=== PATIENT | male | born 1950 | race Native Hawaiian/Other Pacific Islander ===

== ENCOUNTER 2017-09-20 22:48 | Emergency (ER) | payer OTHER ==
[~2017-09-20] VITALS: Ht 170.2 cm; Wt 77.1 kg
[2017-09-20 23:16] LABS: PLATELET COUNT 214 K/uL (142-355)
[2017-09-20 23:28] LABS: POTASSIUM 3.7 mmol/L (3.6-5.2); SODIUM 131 mmol/L (136-145)
[2017-09-20 23:34] LABS: PARTIAL THROMBOPLASTIN TIME 25.6 SECONDS (24.5-33.6)
[2017-09-21 00:05] VITALS: BP 134/79; TEMP 98.3
== END 2017-09-21 00:05 | disposition home or self-care (01) ==
LOC: ED 22:48
DX: R04.0 Epistaxis (principal); I10 Essential (primary) hypertension; D64.89 Other specified anemias
CPT/HCPCS: 36415; 80053; 85027; 85610; 85730; 99283

== ENCOUNTER 2017-09-30 13:48 | Outpatient (CLI) | payer OTHER | END 2017-09-30 20:16 | disposition home or self-care (01) | LOC: RAD 13:48 | DX: J44.9 Chronic obstructive pulmonary disease, unspecified (principal) ==

== ENCOUNTER 2017-10-28 07:57 | Outpatient (CLI) | payer OTHER | END 2017-10-28 09:00 | disposition home or self-care (01) | LOC: CT 07:57 | DX: R91.8 Other nonspecific abnormal finding of lung field (principal); J44.9 Chronic obstructive pulmonary disease, unspecified | CPT/HCPCS: 36415; 82565; 84520; Q9963 ==

== ENCOUNTER 2017-11-10 08:53 | Outpatient (CLI) | payer OTHER | END 2017-11-10 21:39 | disposition home or self-care (01) | LOC: RESP 08:53 | DX: R06.02 Shortness of breath (principal) | CPT/HCPCS: 94640; 94664 ==

== ENCOUNTER 2017-11-10 16:17 | Outpatient (CLI) | payer OTHER | END 2017-11-10 16:20 | disposition short-term general hospital (02) | LOC: AMB 16:17 | DX: R07.89 Other chest pain (principal); S20.212A Contusion of left front wall of thorax, initial encounter; S20.211A Contusion of right front wall of thorax, initial encounter; R06.09 Other forms of dyspnea; M25.512 Pain in left shoulder; M25.511 Pain in right shoulder; V49.88XA Car occupant (driver) (passenger) injured in other specified transport accidents, initial encounter; Y92.488 Other paved roadways as the place of occurrence of the external cause | CPT/HCPCS: A0425; A0427 ==

== ENCOUNTER 2017-11-10 16:30 | Emergency (ER) | payer OTHER ==
[~2017-11-10] VITALS: Ht 170.2 cm; Wt 78.5 kg
[2017-11-10 16:37] VITALS: BP 109/55; TEMP 98.2
== END 2017-11-10 19:30 | disposition short-term general hospital (02) ==
LOC: ED 16:30
DX: S22.41XA Multiple fractures of ribs, right side, initial encounter for closed fracture (principal); R10.84 Generalized abdominal pain; R51 Headache; V49.3XXA Car occupant (driver) (passenger) injured in unspecified nontraffic accident, initial encounter; Y92.89 Other specified places as the place of occurrence of the external cause; R06.02 Shortness of breath
CPT/HCPCS: 80184; 80299; 80320; 80345; 80346; 94640; 94664; 96374; 96375; 99285; G0431; J1170; J1885; J2405

== ENCOUNTER 2017-11-10 19:35 | Outpatient (CLI) | payer OTHER | END 2017-11-10 20:58 | disposition short-term general hospital (02) | LOC: AMB 19:35 | DX: S22.41XA Multiple fractures of ribs, right side, initial encounter for closed fracture (principal); R10.84 Generalized abdominal pain; R51 Headache; R06.02 Shortness of breath | CPT/HCPCS: A0425; A0429 ==

== ENCOUNTER 2017-12-13 13:37 | Emergency (ER) | payer OTHER ==
[~2017-12-13] VITALS: Ht 170.2 cm; Wt 70.8 kg
[2017-12-13 14:58] LABS: PLATELET COUNT 105 K/uL (142-355)
[2017-12-13] MEDS ORDERED: BENZONATATE100 MG PO (15:07)
[2017-12-13] MEDS ORDERED: NEURONTIN 100M100 MG OR (15:08)
[2017-12-13] MEDS ORDERED: CVS OMEPRAZOLE20 MG PO (15:08)
[2017-12-13] MEDS ORDERED: METOPROLOL25 M1 PO (15:09)
[2017-12-13 15:10] LABS: POTASSIUM 3.7 mmol/L (3.6-5.2)
[2017-12-13 15:58] VITALS: BP 145/95; TEMP 97.2
== END 2017-12-13 16:00 | disposition home or self-care (01) ==
LOC: ED 13:37
PROVIDERS: Family Medicine
DX: I16.0 Hypertensive urgency (principal)
CPT/HCPCS: 36415; 80048; 85027; 96374; 99284; J0360; J3490

== ENCOUNTER 2018-05-05 05:28 | Emergency (ER) | payer OTHER ==
[~2018-05-05] VITALS: Ht 170.2 cm; Wt 71.7 kg
[~2018-05-05 05:28] MED LIST: BENZONATATE100 MG PO; CVS OMEPRAZOLE20 MG PO; METOPROLOL25 M1 PO; NEURONTIN 100M100 MG OR
[2018-05-05] MEDS ORDERED: TAMS0.4C PO (05:44)
[2018-05-05] MEDS ORDERED: AMLODIPINE BESYLATE PO (05:45)
[2018-05-05] MEDS ORDERED: TRAM50TA PO (05:45)
[2018-05-05] MEDS ORDERED: MECLIZINE25 MG PO (05:46)
[2018-05-05] MEDS ORDERED: CITALOPRAM40 MG PO (05:47)
[2018-05-05] MEDS ORDERED: GABA300C2 PO (05:47)
[2018-05-05] MEDS ORDERED: BIAXIN500 MG PO (05:48)
[2018-05-05] MEDS ORDERED: LEVOFLOXACIN750 MG PO (05:48)
[2018-05-05] MEDS ORDERED: ETHA400T PO (05:50)
[2018-05-05] MEDS ORDERED: LOSA50TA PO (05:50)
[2018-05-05] MEDS ORDERED: FLUTICASONE50 MCG (05:51)
[2018-05-05] MEDS ORDERED: OMEPRAZOLE40 MG PO (05:52)
[2018-05-05] MEDS ORDERED: ROPINIROLE0.5 MG PO (05:53)
[2018-05-05] MEDS ORDERED: INCRUSE EL62.5 MCG/I IN (05:54)
[2018-05-05] MEDS ORDERED: DALIRESP500 MC1 PO (05:54)
[2018-05-05] MEDS ORDERED: BREO ELLIPTA 101 INH IN (05:55)
[2018-05-05 06:26] LABS: PLATELET COUNT 111 K/uL (142-355)
[2018-05-05 06:38] LABS: POTASSIUM 3.9 mmol/L (3.6-5.2)
[2018-05-05 08:30] VITALS: BP 130/78; TEMP 97.8
== END 2018-05-05 08:30 | disposition home or self-care (01) ==
LOC: ED 05:28
PROVIDERS: Family Medicine
DX: S30.0XXA Contusion of lower back and pelvis, initial encounter (principal); W18.39XA Other fall on same level, initial encounter; Y92.091 Bathroom in other non-institutional residence as the place of occurrence of the external cause; Z85.118 Personal history of other malignant neoplasm of bronchus and lung
CPT/HCPCS: 36415; 80053; 81000; 85027; 96372; 99283; J1885

== ENCOUNTER 2018-12-15 11:27 | Emergency (ER) | payer OTHER ==
[~2018-12-15] VITALS: Ht 170.2 cm; Wt 64.0 kg
[~2018-12-15 11:27] MED LIST changes: +AMLODIPINE BESYLATE PO; +BIAXIN500 MG PO; +BREO ELLIPTA 101 INH IN; +CITALOPRAM40 MG PO; +DALIRESP500 MC1 PO; +ETHA400T PO; +FLUTICASONE50 MCG; +GABA300C2 PO; +INCRUSE EL62.5 MCG/I IN; +LEVOFLOXACIN750 MG PO; +LOSA50TA PO; +MECLIZINE25 MG PO; +OMEPRAZOLE40 MG PO; +ROPINIROLE0.5 MG PO; +TAMS0.4C PO; +TRAM50TA PO
[2018-12-15 12:32] LABS: PLATELET COUNT 84 K/uL (142-355)
[2018-12-15 12:45] LABS: POTASSIUM 3.9 mmol/L (3.6-5.2)
[2018-12-15 12:48] LABS: PARTIAL THROMBOPLASTIN TIME 28.1 SECONDS (24.5-33.6)
[2018-12-15 14:33] VITALS: BP 105/64; TEMP 98
== END 2018-12-15 14:34 | disposition home or self-care (01) ==
LOC: ED 11:27
PROVIDERS: Family Medicine
DX: R55 Syncope and collapse (principal); S00.83XA Contusion of other part of head, initial encounter; W01.198A Fall on same level from slipping, tripping and stumbling with subsequent striking against other object, initial encounter; Y92.098 Other place in other non-institutional residence as the place of occurrence of the external cause
CPT/HCPCS: 36415; 80053; 81000; 85027; 85610; 85730; 87088; 99283

== ENCOUNTER 2019-07-10 10:21 | Outpatient (CLI) | payer OTHER ==
[2019-07-10 10:59] LABS: PLATELET COUNT 167 K/uL (142-355)
[2019-07-10 11:17] LABS: POTASSIUM 3.9 mmol/L (3.6-5.2)
== END 2019-07-10 20:23 | disposition home or self-care (01) ==
LOC: LABW 10:21
PROVIDERS: Nurse Practitioner
DX: I10 Essential (primary) hypertension (principal); Z12.5 Encounter for screening for malignant neoplasm of prostate; E78.00 Pure hypercholesterolemia, unspecified; E55.9 Vitamin D deficiency, unspecified; R53.82 Chronic fatigue, unspecified; Z79.899 Other long term (current) drug therapy; R97.20 Elevated prostate specific antigen [PSA]
CPT/HCPCS: 36415; 80053; 80061; 82306; 83036; 84153; 84443; 85027

== ENCOUNTER 2019-07-25 10:35 | Outpatient (CLI) | payer OTHER | END 2019-07-25 19:33 | disposition home or self-care (01) | LOC: LABW 10:35 | DX: E78.00 Pure hypercholesterolemia, unspecified (principal); E55.9 Vitamin D deficiency, unspecified; R53.82 Chronic fatigue, unspecified; Z79.899 Other long term (current) drug therapy | CPT/HCPCS: 82306 ==

== ENCOUNTER 2020-06-09 18:51 | Emergency (ER) | payer OTHER ==
[~2020-06-09] VITALS: Ht 33 cm; Wt 0.5 kg
[2020-06-09 19:41] LABS: PLATELET COUNT 138 K/uL (142-355)
[2020-06-09 19:56] LABS: POTASSIUM 2.8 mmol/L (3.6-5.2)
[2020-06-10 00:50] VITALS: BP 127/85; TEMP 98.3
== END 2020-06-10 00:50 | disposition short-term general hospital (02) ==
LOC: ED 18:51
PROVIDERS: Emergency Medicine Emergency Medical Services
DX: T18.128A Food in esophagus causing other injury, initial encounter (principal)
CPT/HCPCS: 36415; 80053; 85027; 96360; 96375; 96376; 99284; J1610

== ENCOUNTER 2020-12-02 09:58 | Outpatient (CLI) | payer OTHER | END 2020-12-02 20:46 | disposition home or self-care (01) | LOC: RESP 09:58 | PROVIDERS: ATTEND Family Medicine | DX: Z01.818 Encounter for other preprocedural examination (principal); K21.9 Gastro-esophageal reflux disease without esophagitis; I10 Essential (primary) hypertension; J44.9 Chronic obstructive pulmonary disease, unspecified; C61 Malignant neoplasm of prostate; G25.81 Restless legs syndrome; R53.83 Other fatigue; R73.01 Impaired fasting glucose | CPT/HCPCS: 93005 ==

== ENCOUNTER 2022-02-12 10:27 | Outpatient (CLI) | payer OTHER | END 2022-02-12 18:57 | disposition home or self-care (01) | LOC: RESP 10:27 | PROVIDERS: ATTEND Physician Assistant | DX: R01.1 Cardiac murmur, unspecified (principal) ==

== ENCOUNTER 2022-05-14 21:46 | Inpatient (IN) | payer OTHER ==
[~2022-05-14] VITALS: Ht 165.1 cm; Wt 53.6 kg
[2022-05-14 21:55] VITALS: BP 160/94; TEMP 97.7
[2022-05-14 22:48] LABS: PLATELET COUNT 91 K/uL (142-355)
[2022-05-14 22:52] LABS: POTASSIUM 2.5 mmol/L (3.6-5.2)
[2022-05-14 23:52] VITALS: BP 140/88
[2022-05-15 01:42] VITALS: BP 141/75; TEMP 97.7; Ht 165.1 cm; Wt 53.6 kg
[2022-05-15 04:00] VITALS: BP 133/75; TEMP 98.3
[2022-05-15 05:51] LABS: PLATELET COUNT 73 K/uL (142-355)
[2022-05-15 08:20] VITALS: BP 139/71; TEMP 98.2
[2022-05-15] MEDS ORDERED: LISINOPRIL 2.5 MG PO (10:36)
[2022-05-15 11:56] VITALS: BP 128/69; TEMP 98.1
[2022-05-15 16:21] VITALS: BP 151/79; TEMP 97.9
[2022-05-15 20:00] VITALS: BP 149/80; TEMP 98.7
[2022-05-16] VITALS (7 sets, daily range): BP systolic 120–145; BP diastolic 70–80; TEMP 97.6–98.2
[2022-05-16 08:28] LABS: PLATELET COUNT 83 K/uL (142-355)
[2022-05-16 08:42] LABS: POTASSIUM 3.4 mmol/L (3.6-5.2)
[2022-05-17 04:00] VITALS: BP 143/76; TEMP 98.1
[2022-05-17 05:20] LABS: PLATELET COUNT 81 K/uL (142-355)
[2022-05-17 05:32] LABS: POTASSIUM 3.2 mmol/L (3.6-5.2)
[2022-05-17 07:57] VITALS: BP 133/63; TEMP 98.1
[2022-05-17] MEDS ORDERED: GABA300C2 PO (09:25)
[2022-05-17] MEDS ORDERED: ROPINIROLE0.5 MG PO (09:27)
[2022-05-17] MEDS ORDERED: TAMS0.4C PO (09:29)
[2022-05-17] MEDS ORDERED: INCRUSE EL62.5 MCG/I IN (09:30)
== END 2022-05-17 11:00 | disposition home or self-care (01) | DRG 178 ==
LOC: ED 21:46 → MED/SURG 23:35
PROVIDERS: Internal Medicine; ADMIT Emergency Medicine; ATTEND Internal Medicine
DX: U07.1 COVID-19 (principal); E87.1 Hypo-osmolality and hyponatremia; K52.89 Other specified noninfective gastroenteritis and colitis; I10 Essential (primary) hypertension; N40.0 Benign prostatic hyperplasia without lower urinary tract symptoms; Z85.118 Personal history of other malignant neoplasm of bronchus and lung; Z85.46 Personal history of malignant neoplasm of prostate; R53.1 Weakness
CPT/HCPCS: 36415; 80048; 80053; 80320; 82150; 83690; 84484; 85027; 87635; 93005; 96360; 96365; 96375; 99284; J0248; J0696; J2405; U0003

== ENCOUNTER 2023-03-11 09:15 | Outpatient (CLI) | payer OTHER ==
[~2023-03-11 09:15] MED LIST changes: +LISINOPRIL 2.5 MG PO
== END 2023-03-11 19:18 | disposition home or self-care (01) ==
LOC: US 09:15
PROVIDERS: ATTEND Physician Assistant
DX: R60.0 Localized edema (principal)